=== PATIENT | female | born 1970 | race Caucasian/White ===

== ENCOUNTER 2018-03-24 15:15 | Emergency (ER) | payer BC ==
[~2018-03-24] VITALS: Ht 157.5 cm; Wt 88.5 kg
[2018-03-24] MEDS ORDERED: COZAAR50 MG (16:16)
== END 2018-03-24 22:19 | disposition home or self-care (01) ==
LOC: ER 15:15
DX: O20.0 Threatened abortion (principal); Z34.83 Encounter for supervision of other normal pregnancy, third trimester